=== PATIENT | male | born 1985 | race African-American/Black ===

== ENCOUNTER 2019-02-13 22:29 | Emergency (ER) | payer OTHER, SELFPAY | END 2019-02-13 23:12 | disposition home or self-care (01) | LOC: ERS 22:29 | DX: L03.811 Cellulitis of head [any part, except face] (principal); E11.9 Type 2 diabetes mellitus without complications; I11.0 Hypertensive heart disease with heart failure; F17.210 Nicotine dependence, cigarettes, uncomplicated; Z79.899 Other long term (current) drug therapy; Z79.84 Long term (current) use of oral hypoglycemic drugs | CPT/HCPCS: 99282 ==

== ENCOUNTER 2022-03-27 22:59 | Inpatient (IN) | payer SELFPAY ==
[2022-03-28] MEDS ORDERED: HYDROcodone/Acetaminophen 7.5/325 mg Tablet PO PRN (01:53)
[2022-03-28] MEDS ORDERED: Ondansetron PF 4 MG/2 ML Vial IVP PRN ×2 (01:53→17:58)
[2022-03-28] MEDS ORDERED: hydrALAZINE 20 MG/ML VIAL SLOW IVP PRN ×2 (02:14→17:58)
[2022-03-28 05:08] LABS: Anion Gap 17 mmol/L (10-20); BUN (Urea Nitrogen) 7 mg/dL (8.9-20.6); Calc. Creatinine Clearance 115 mL/min (70-130); Calcium 9.2 mg/dL (7.8-10.44); Carbon Dioxide 20 mmol/L (22-29); Chloride 103 mmol/L (98-107); Estimated GFR 75; Glucose 102 mg/dL (70-105); Potassium 4.1 mmol/L (3.5-5.1); Sodium 136 mmol/L (136-145)
[2022-03-28 05:17] LABS: #Eosinphils 0.2 thou/uL (0.0-0.7); #Lymphocytes 1.6 thou/uL (1.20-3.40); #Monocytes 0.9 thou/uL (0.11-0.59); #Neutrophils 11.9 thou/uL (1.40-6.50); %Basophils 0.2 % (0.0-1.0); %Eosinophils 1.1 % (0.0-10.0); %Lymphocytes 10.9 % (21.0-51.0); %Monocytes 5.8 % (0.0-10.0); Band 2 % (5-11); Eosinophils 1 % (0-10); Hemoglobin 8.5 g/dL (14.0-18.0); Hypochromia SLIGHT = 6-15 cells (100X) (0-5/hpf); Lymphocytes 18 % (21-51); MDiff Complete? YES; Mean Corpuscular HGB CONC 28.6 g/dL (32.0-36.0); Mean Corpuscular Hemoglobin 19.2 pg (27.0-31.0); Mean Corpuscular Volume 66.9 fL (78.0-98.0); Monocytes 8 % (0-10); Neutrophil 71 % (42-75); Nucleated RBC 2 % (0); Platelet Count 368 thou/uL (130-400); Platelet Morphology Comment Appears Adequate; RBC Distribution Width 20.4 % (11.5-14.5); Red Blood Cell (RBC) Count 4.43 mill/uL (4.70-6.10); Target Cells SLIGHT = 2-5 cells (100X) (0-1/hpf); White Blood Cell (WBC) Count 14.5 thou/uL (4.8-10.8)
[2022-03-28] MEDS ORDERED: Lisinopril 20 MG TAB PO SCH (09:00)
[2022-03-28] MEDS ORDERED: Furosemide 20 MG TAB PO SCH (09:00)
[2022-03-28] MEDS: Carvedilol 25 MG TAB PO SCH (09:26)
[2022-03-28] MEDS: Ferrous Sulfate 325 MG TAB PO SCH ×2 (09:26→18:38)
[2022-03-28] MEDS ORDERED: Midazolam HCl 2 mg/2 ml Vial ONE (12:27)
[2022-03-28] MEDS ORDERED: Ketamine 50 MG/ML (10ML VIAL) ONE (12:27)
[2022-03-28] MEDS ORDERED: Albumin 5% 250 ML ONE (12:28)
[2022-03-28] MEDS ORDERED: Famotidine/PF 20 mg/2ml Vial ONE (12:28)
[2022-03-28] MEDS ORDERED: fentaNYL Citrate/PF 100 MCG/2 ML SYRINGE ONE ×2 (12:28→15:09)
[2022-03-28] MEDS ORDERED: SUGAMMADEX SODIUM 200 MG/2 ML VIAL ONE (12:28)
[2022-03-28] MEDS ORDERED: Phenylephrine 10 MG/ML VIAL ONE ×2 (12:29→13:09)
[2022-03-28] MEDS ORDERED: cefOXitin 2 GM VIAL ONE (12:52)
[2022-03-28] MEDS ORDERED: Sodium Chloride 0.9% 100 ML ONE (12:53)
[2022-03-28] MEDS ORDERED: Lidocaine 1% PF 5 ML VIAL ONE ×3 (13:09→19:49)
[2022-03-28] MEDS ORDERED: Dexamethasone 20 MG/5 ML VIAL ONE (13:09)
[2022-03-28] MEDS ORDERED: Rocuronium Bromide 10 MG/ML (10ML VIAL) ONE (13:09)
[2022-03-28] MEDS ORDERED: Bupivacaine 0.25% 10 ML VIAL ONE (13:31)
[2022-03-28] MEDS ORDERED: EPINEPHrine 1 MG/ML AMP ONE (13:31)
[2022-03-28] MEDS ORDERED: Bupivacaine/Epinephrine 0.25% 30 ML VIAL ONE ×2 (13:31→16:45)
[2022-03-28] MEDS ORDERED: Rocuronium Bromide 50 MG/5 ML VIAL ONE (15:09)
[2022-03-28] MEDS ORDERED: Ondansetron HCl/PF 4 MG/2 ML Vial IVP PRN (17:28)
[2022-03-28] MEDS ORDERED: Promethazine HCl 25 MG/ML VIAL IVPB PRN (17:28)
[2022-03-28] MEDS ORDERED: Promethazine HCl 25 MG/ML VIAL IM PRN ×2 (17:28→17:58)
[2022-03-28] MEDS ORDERED: HYDROmorphone 2 MG/ML VIAL SLOW IVP PRN (17:28)
[2022-03-28] MEDS ORDERED: PACU-Morphine 4MG/ML VIAL SLOW IVP PRN (17:28)
[2022-03-28] MEDS ORDERED: Morphine 4 MG/ML VIAL SLOW IVP PRN (17:58)
[2022-03-28] MEDS ORDERED: Morphine 2 MG/ML VIAL SLOW IVP PRN (17:58)
[2022-03-28] MEDS: Ketorolac Tromethamine 30 MG/ML VIAL IVP SCH (19:01)
[2022-03-28] MEDS: D5 1/2 NS w/20 mEq KCL 1,000 ML IV SCH (19:03)
[2022-03-28] MEDS: Famotidine 20 MG TAB PO SCH (20:38)
[2022-03-28] MEDS: Atorvastatin Calcium 20 MG TAB PO SCH (20:38)
[2022-03-28] MEDS ORDERED: Atorvastatin Calcium 20 MG TAB PO SCH (21:00)
[2022-03-28] MEDS: Famotidine/PF 20 mg/2ml Vial SLOW IVP SCH (21:41)
[2022-03-29] MEDS: Ketorolac Tromethamine 30 MG/ML VIAL IVP SCH ×3 (00:16→12:59)
[2022-03-29] MEDS: D5 1/2 NS w/20 mEq KCL 1,000 ML IV SCH (02:58)
[2022-03-29 04:54] LABS: Anion Gap 14 mmol/L (10-20); BUN (Urea Nitrogen) 14 mg/dL (8.9-20.6); Calc. Creatinine Clearance 91 mL/min (70-130); Calcium 8.9 mg/dL (7.8-10.44); Carbon Dioxide 18 mmol/L (22-29); Chloride 105 mmol/L (98-107); Estimated GFR 56; Glucose 278 mg/dL (70-105); Potassium 5.2 mmol/L (3.5-5.1); Sodium 132 mmol/L (136-145)
[2022-03-29 05:28] LABS: Anisocytosis MODERATE=16-30 cells (100X) (0-5/hpf); Band 1 % (5-11); Burr Cells SLIGHT = 2-5 cells (100X) (0-1/hpf); Hemoglobin 10.9 g/dL (14.0-18.0); Hypochromia SLIGHT = 6-15 cells (100X) (0-5/hpf); Lymphocytes 1 % (21-51); MDiff Complete? YES; Mean Corpuscular HGB CONC 29.2 g/dL (32.0-36.0); Mean Corpuscular Hemoglobin 21.1 pg (27.0-31.0); Mean Corpuscular Volume 72.1 fL (78.0-98.0); Mean Platelet Volume 11.4 fL (7.4-10.4); Microcytosis SLIGHT = 6-15 cells (100X) (0-5/hpf); Monocytes 6 % (0-10); Neutrophil 92 % (42-75); Platelet Count 379 thou/uL (130-400); Platelet Morphology Comment Appears Adequate; Polychromasia SLIGHT = 2-3 cells (100X) (0-2/hpf); RBC Distribution Width 22.7 % (11.5-14.5); Red Blood Cell (RBC) Count 5.17 mill/uL (4.70-6.10); Target Cells SLIGHT = 2-5 cells (100X) (0-1/hpf); White Blood Cell (WBC) Count 23.1 thou/uL (4.8-10.8)
[2022-03-29] MEDS ORDERED: Lactated Ringer's 1,000 ML IV SCH (08:15)
[2022-03-29] MEDS: Enoxaparin Sodium 40 MG/0.4 ML SYRINGE SC SCH (09:24)
[2022-03-29] MEDS: Famotidine/PF 20 mg/2ml Vial SLOW IVP SCH (09:26)
[2022-03-29] MEDS: Famotidine 20 MG TAB PO SCH ×2 (09:26→21:25)
[2022-03-29] MEDS: HYDROcodone/Acetaminophen 7.5/325 mg Tablet PO PRN ×2 (09:27→19:50)
[2022-03-29] MEDS: Furosemide 20 MG TAB PO SCH (09:28)
[2022-03-29] MEDS: Carvedilol 25 MG TAB PO SCH (09:28)
[2022-03-29] MEDS: Lisinopril 20 MG TAB PO SCH (09:28)
[2022-03-29] MEDS: Lactated Ringer's 1,000 ML IV SCH (14:51)
[2022-03-29] MEDS: Atorvastatin Calcium 20 MG TAB PO SCH (21:25)
[2022-03-30] MEDS: HYDROcodone/Acetaminophen 7.5/325 mg Tablet PO PRN ×3 (00:01→17:36)
[2022-03-30 00:49] LABS: Bacteria/HPF None Seen HPF (None Seen); Bilirubin Negative (Negative); Blood, Urine 1+ (Negative); Clarity Clear (Clear); Glucose, Urine (Dipstick) Normal (Negative); Ketone, Urine Negative (Negative); Leukocyte 75 Leu/uL (Negative); Nitrite Negative (Negative); Protein, Urine (Dipstick) Negative (Neg-Trace); Specific Gravity, Urine 1.018 (1.002-1.036); Squamous Epithelial None Seen HPF (0-3); Urine Culture Reflex Yes Yes; Urobilinogen Normal mg/dL (Less than 2)
[2022-03-30 04:50] LABS: Anion Gap 14 mmol/L (10-20); BUN (Urea Nitrogen) 19 mg/dL (8.9-20.6); Calc. Creatinine Clearance 96 mL/min (70-130); Calcium 8.9 mg/dL (7.8-10.44); Carbon Dioxide 19 mmol/L (22-29); Chloride 106 mmol/L (98-107); Estimated GFR 60; Glucose 98 mg/dL (70-105); Potassium 4.4 mmol/L (3.5-5.1); Sodium 135 mmol/L (136-145)
[2022-03-30 05:03] LABS: Band 4 % (5-11); Hemoglobin 9.4 g/dL (14.0-18.0); Hypochromia SLIGHT = 6-15 cells (100X) (0-5/hpf); Lymphocytes 8 % (21-51); MDiff Complete? YES; Mean Corpuscular HGB CONC 28.7 g/dL (32.0-36.0); Mean Corpuscular Hemoglobin 20.8 pg (27.0-31.0); Mean Corpuscular Volume 72.6 fL (78.0-98.0); Mean Platelet Volume 11.1 fL (7.4-10.4); Microcytosis SLIGHT = 6-15 cells (100X) (0-5/hpf); Monocytes 7 % (0-10); Neutrophil 81 % (42-75); Platelet Count 387 thou/uL (130-400); Platelet Morphology Comment Appears Adequate; Polychromasia SLIGHT = 2-3 cells (100X) (0-2/hpf); RBC Distribution Width 23.1 % (11.5-14.5); Red Blood Cell (RBC) Count 4.49 mill/uL (4.70-6.10); White Blood Cell (WBC) Count 23.7 thou/uL (4.8-10.8)
[2022-03-30] MEDS: Lactated Ringer's 1,000 ML IV SCH ×2 (05:56→20:45)
[2022-03-30] MEDS: Furosemide 20 MG TAB PO SCH (08:47)
[2022-03-30] MEDS: Lisinopril 20 MG TAB PO SCH (08:47)
[2022-03-30] MEDS: Carvedilol 25 MG TAB PO SCH (08:47)
[2022-03-30] MEDS: Famotidine 20 MG TAB PO SCH ×2 (08:47→20:45)
[2022-03-30] MEDS: Enoxaparin Sodium 40 MG/0.4 ML SYRINGE SC SCH (08:47)
[2022-03-30] MEDS: Atorvastatin Calcium 20 MG TAB PO SCH (20:45)
[2022-03-31] MEDS: HYDROcodone/Acetaminophen 7.5/325 mg Tablet PO PRN ×3 (04:03→20:26)
[2022-03-31] MEDS: Lactated Ringer's 1,000 ML IV SCH ×2 (04:04→20:27)
[2022-03-31 04:21] LABS: #Eosinphils 0.1 thou/uL (0.0-0.7); #Lymphocytes 1.4 thou/uL (1.20-3.40); #Monocytes 1.2 thou/uL (0.11-0.59); #Neutrophils 8.7 thou/uL (1.40-6.50); %Basophils 0.1 % (0.0-1.0); %Eosinophils 0.7 % (0.0-10.0); %Lymphocytes 11.9 % (21.0-51.0); %Monocytes 10.4 % (0.0-10.0); %Neutrophils 76.8 % (42.0-75.0); Mean Corpuscular HGB CONC 30.1 g/dL (32.0-36.0); Mean Corpuscular Hemoglobin 21.4 pg (27.0-31.0); Mean Platelet Volume 11.8 fL (7.4-10.4); Platelet Count 346 thou/uL (130-400); RBC Distribution Width 23.9 % (11.5-14.5); Red Blood Cell (RBC) Count 4.19 mill/uL (4.70-6.10); White Blood Cell (WBC) Count 11.4 thou/uL (4.8-10.8)
[2022-03-31 04:40] LABS: Anion Gap 15 mmol/L (10-20); BUN (Urea Nitrogen) 17 mg/dL (8.9-20.6); Calc. Creatinine Clearance 114 mL/min (70-130); Calcium 8.7 mg/dL (7.8-10.44); Carbon Dioxide 21 mmol/L (22-29); Chloride 101 mmol/L (98-107); Estimated GFR 70; Glucose 104 mg/dL (70-105); Potassium 3.8 mmol/L (3.5-5.1); Sodium 133 mmol/L (136-145)
[2022-03-31] MEDS: Carvedilol 25 MG TAB PO SCH (09:25)
[2022-03-31] MEDS: Lisinopril 20 MG TAB PO SCH (09:25)
[2022-03-31] MEDS: Famotidine 20 MG TAB PO SCH ×2 (09:25→20:28)
[2022-03-31] MEDS: Furosemide 20 MG TAB PO SCH (09:25)
[2022-03-31] MEDS: Enoxaparin Sodium 40 MG/0.4 ML SYRINGE SC SCH (09:26)
[2022-03-31] MEDS: Ferrous Sulfate 325 MG TAB PO SCH (16:30)
[2022-03-31] MEDS: Atorvastatin Calcium 20 MG TAB PO SCH (20:26)
[2022-04-01 04:59] LABS: Anion Gap 15 mmol/L (10-20); BUN (Urea Nitrogen) 15 mg/dL (8.9-20.6); Calc. Creatinine Clearance 116 mL/min (70-130); Calcium 8.7 mg/dL (7.8-10.44); Carbon Dioxide 21 mmol/L (22-29); Chloride 99 mmol/L (98-107); Estimated GFR 73; Glucose 128 mg/dL (70-105); Potassium 3.9 mmol/L (3.5-5.1); Sodium 131 mmol/L (136-145)
[2022-04-01 06:21] LABS: Anisocytosis MODERATE=16-30 cells (100X) (0-5/hpf); Band 6 % (5-11); Eosinophils 1 % (0-10); Hemoglobin 8.6 g/dL (14.0-18.0); Hypochromia SLIGHT = 6-15 cells (100X) (0-5/hpf); Lymphocytes 8 % (21-51); MDiff Complete? YES; Mean Corpuscular HGB CONC 28.9 g/dL (32.0-36.0); Mean Corpuscular Hemoglobin 21.1 pg (27.0-31.0); Mean Platelet Volume 10.6 fL (7.4-10.4); Monocytes 4 % (0-10); Neutrophil 81 % (42-75); Platelet Count 334 thou/uL (130-400); RBC Distribution Width 23.5 % (11.5-14.5); Red Blood Cell (RBC) Count 4.09 mill/uL (4.70-6.10); Target Cells SLIGHT = 2-5 cells (100X) (0-1/hpf); White Blood Cell (WBC) Count 26.7 thou/uL (4.8-10.8)
[2022-04-01] MEDS: HYDROcodone/Acetaminophen 7.5/325 mg Tablet PO PRN ×3 (06:24→22:04)
[2022-04-01] MEDS: Ferrous Sulfate 325 MG TAB PO SCH (08:54)
[2022-04-01] MEDS: Famotidine 20 MG TAB PO SCH ×2 (08:54→21:57)
[2022-04-01] MEDS: Furosemide 20 MG TAB PO SCH (08:54)
[2022-04-01] MEDS: Enoxaparin Sodium 40 MG/0.4 ML SYRINGE SC SCH (08:54)
[2022-04-01] MEDS: Lisinopril 20 MG TAB PO SCH (08:54)
[2022-04-01] MEDS: Lactated Ringer's 1,000 ML IV SCH ×3 (08:55→21:57)
[2022-04-01] MEDS: Carvedilol 25 MG TAB PO SCH (08:56)
[2022-04-01] MEDS ORDERED: MD-Gastroview 120 ML BOT ONE (14:35)
[2022-04-01] MEDS ORDERED: Piperacillin/Tazobactam 3.375 GM VIAL ONE ×2 (15:24→20:28)
[2022-04-01] MEDS ORDERED: Sodium Chloride 0.9% 100 ML ONE ×2 (15:24→20:28)
[2022-04-01] MEDS ORDERED: Bupivacaine/Epinephrine 0.25% 30 ML VIAL ONE (17:23)
[2022-04-01] MEDS ORDERED: fentaNYL Citrate/PF 100 MCG/2 ML SYRINGE ONE ×2 (17:32→20:34)
[2022-04-01] MEDS ORDERED: ePHEDrine 50 MG/ML VIAL ONE (17:58)
[2022-04-01] MEDS ORDERED: Phenylephrine 10 MG/ML VIAL ONE (17:58)
[2022-04-01] MEDS ORDERED: Rocuronium Bromide 10 MG/ML (10ML VIAL) ONE (17:58)
[2022-04-01] MEDS ORDERED: Dexamethasone 20 MG/5 ML VIAL ONE (17:58)
[2022-04-01] MEDS ORDERED: Succinylcholine 200 MG/10 ml SYRINGE FS ONE (17:58)
[2022-04-01] MEDS ORDERED: Ondansetron PF 4 MG/2 ML Vial ONE (17:58)
[2022-04-01 18:32] LABS: Iron 9 ug/dL (65-175); Iron Binding Capacity, Total 239 mcg/dL (261-462)
[2022-04-01] MEDS ORDERED: EPINEPHrine 1 MG/ML AMP ONE (19:01)
[2022-04-01] MEDS ORDERED: Bupivacaine PF 0.5% 30 ML VIAL ONE (19:01)
[2022-04-01] MEDS ORDERED: Ondansetron HCl/PF 4 MG/2 ML Vial IVP PRN (20:11)
[2022-04-01] MEDS ORDERED: Promethazine HCl 25 MG/ML VIAL IVPB PRN (20:11)
[2022-04-01] MEDS ORDERED: Promethazine HCl 25 MG/ML VIAL IM PRN (20:11)
[2022-04-01] MEDS: Piperacillin/Tazobactam 3.375 GM in Sodium Chloride 0.9% 100 ML IVPB SCH (20:30)
[2022-04-01] MEDS: Atorvastatin Calcium 20 MG TAB PO SCH (21:57)
[2022-04-02] MEDS: Morphine 2 MG/ML VIAL SLOW IVP PRN (01:48)
[2022-04-02] MEDS: Piperacillin/Tazobactam 3.375 GM in Sodium Chloride 0.9% 100 ML IVPB SCH ×4 (02:32→23:35)
[2022-04-02 04:46] LABS: Anion Gap 15 mmol/L (10-20); BUN (Urea Nitrogen) 25 mg/dL (8.9-20.6); Calc. Creatinine Clearance 64 mL/min (70-130); Calcium 8.5 mg/dL (7.8-10.44); Carbon Dioxide 23 mmol/L (22-29); Chloride 100 mmol/L (98-107); Estimated GFR 35; Glucose 197 mg/dL (70-105); Potassium 4.2 mmol/L (3.5-5.1); Sodium 134 mmol/L (136-145)
[2022-04-02 05:35] LABS: Anisocytosis MODERATE=16-30 cells (100X) (0-5/hpf); Band 9 % (5-11); Hemoglobin 9.1 g/dL (14.0-18.0); Hypochromia SLIGHT = 6-15 cells (100X) (0-5/hpf); Lymphocytes 1 % (21-51); MDiff Complete? YES; Mean Corpuscular HGB CONC 29.9 g/dL (32.0-36.0); Mean Corpuscular Volume 73.6 fL (78.0-98.0); Mean Platelet Volume 10.2 fL (7.4-10.4); Monocytes 6 % (0-10); Neutrophil 84 % (42-75); Platelet Count 371 thou/uL (130-400); RBC Distribution Width 23.1 % (11.5-14.5); Red Blood Cell (RBC) Count 4.12 mill/uL (4.70-6.10); White Blood Cell (WBC) Count 32.3 thou/uL (4.8-10.8)
[2022-04-02] MEDS: HYDROcodone/Acetaminophen 7.5/325 mg Tablet PO PRN ×2 (05:42→23:35)
[2022-04-02] MEDS: Lactated Ringer's 1,000 ML IV SCH ×5 (05:55→20:40)
[2022-04-02] MEDS ORDERED: Sodium Chloride 0.9% 1,000 ML IV SCH ×2 (08:15→17:00)
[2022-04-02] MEDS: Enoxaparin Sodium 40 MG/0.4 ML SYRINGE SC SCH (08:50)
[2022-04-02] MEDS: Carvedilol 25 MG TAB PO SCH (08:50)
[2022-04-02] MEDS: Famotidine 20 MG TAB PO SCH (08:50)
[2022-04-02] MEDS: Lisinopril 20 MG TAB PO SCH (08:50)
[2022-04-02] MEDS: Morphine 4 MG/ML VIAL SLOW IVP PRN (08:51)
[2022-04-02] MEDS ORDERED: Iron, Sodium Ferric Gluconate 250 MG in Sodium Chloride 0.9% 250 ML 250 ML IVPB SCH (13:00)
[2022-04-02 14:22] LABS: Anion Gap 17 mmol/L (10-20); BUN (Urea Nitrogen) 35 mg/dL (8.9-20.6); Calc. Creatinine Clearance 51 mL/min (70-130); Calcium 8.3 mg/dL (7.8-10.44); Carbon Dioxide 21 mmol/L (22-29); Chloride 102 mmol/L (98-107); Estimated GFR 26; Glucose 197 mg/dL (70-105); Potassium 4.5 mmol/L (3.5-5.1); Sodium 135 mmol/L (136-145)
[2022-04-02] MEDS: Ferrous Sulfate 325 MG TAB PO SCH (14:38)
[2022-04-02] MEDS: Atorvastatin Calcium 20 MG TAB PO SCH (21:51)
[2022-04-03] MEDS: Lactated Ringer's 1,000 ML IV SCH ×2 (02:25→05:42)
[2022-04-03 04:40] LABS: Anion Gap 16 mmol/L (10-20); BUN (Urea Nitrogen) 43 mg/dL (8.9-20.6); Calc. Creatinine Clearance 41 mL/min (70-130); Calcium 8.6 mg/dL (7.8-10.44); Carbon Dioxide 20 mmol/L (22-29); Chloride 101 mmol/L (98-107); Estimated GFR 20; Glucose 139 mg/dL (70-105); Potassium 4.2 mmol/L (3.5-5.1); Sodium 133 mmol/L (136-145)
[2022-04-03 05:00] LABS: Anisocytosis MODERATE=16-30 cells (100X) (0-5/hpf); Band 3 % (5-11); Hemoglobin 7.2 g/dL (14.0-18.0); Hypochromia SLIGHT = 6-15 cells (100X) (0-5/hpf); Lymphocytes 2 % (21-51); MDiff Complete? YES; Mean Corpuscular HGB CONC 29.2 g/dL (32.0-36.0); Mean Corpuscular Hemoglobin 21.5 pg (27.0-31.0); Mean Corpuscular Volume 73.7 fL (78.0-98.0); Mean Platelet Volume 10.5 fL (7.4-10.4); Microcytosis SLIGHT = 6-15 cells (100X) (0-5/hpf); Monocytes 6 % (0-10); Neutrophil 89 % (42-75); Platelet Count 367 thou/uL (130-400); RBC Distribution Width 23.1 % (11.5-14.5); Red Blood Cell (RBC) Count 3.34 mill/uL (4.70-6.10); Target Cells SLIGHT = 2-5 cells (100X) (0-1/hpf); White Blood Cell (WBC) Count 21.1 thou/uL (4.8-10.8)
[2022-04-03] MEDS: Enoxaparin Sodium 40 MG/0.4 ML SYRINGE SC SCH (09:00)
[2022-04-03] MEDS: Famotidine 20 MG TAB PO SCH (09:00)
[2022-04-03] MEDS: Piperacillin/Tazobactam 3.375 GM in Sodium Chloride 0.9% 100 ML IVPB SCH ×3 (09:01→22:40)
[2022-04-03] MEDS: Carvedilol 25 MG TAB PO SCH (09:01)
[2022-04-03] MEDS: HYDROcodone/Acetaminophen 7.5/325 mg Tablet PO PRN ×2 (09:48→23:59)
[2022-04-03 10:34] LABS: ALT (SGPT) 19 U/L (8-55); AST (SGOT) 35 U/L (5-34); Albumin 2.4 g/dL (3.5-5.0); Alkaline Phosphatase 65 U/L (40-110); Bilirubin, Direct 0.6 mg/dL (0.1-0.3); Bilirubin, Total 0.8 mg/dL (0.2-1.2); Protein, Total 6.3 g/dL (6.0-8.3)
[2022-04-03 11:58] VITALS: BMI 39.9
[2022-04-03] MEDS: Albumin 25% 25 GM/100 ML BOT IVPB SCH ×3 (12:17→22:40)
[2022-04-03] MEDS ORDERED: Iron, Sodium Ferric Gluconate 250 MG in Sodium Chloride 0.9% 250 ML 250 ML IVPB SCH (13:00)
[2022-04-03] MEDS: Atorvastatin Calcium 20 MG TAB PO SCH (20:29)
[2022-04-03] MEDS: Sodium Bicarbonate 150 MEQ in Dextrose 5% in Water 1,000 ML IV SCH (22:40)
[2022-04-03 22:44] LABS: Bilirubin Negative (Negative); Blood, Urine 3+ (Negative); Clarity Turbid (Clear); Glucose, Urine (Dipstick) Normal (Negative); Ketone, Urine Negative (Negative); Leukocyte Negative Leu/uL (Negative); Nitrite Negative (Negative); Protein, Urine (Dipstick) 30 mg/dL (Neg-Trace); Specific Gravity, Urine 1.016 (1.002-1.036); Squamous Epithelial None Seen HPF (0-3); Urobilinogen Normal mg/dL (Less than 2); pH, Urine 5.5 (5.0-9.0)
[2022-04-03 22:58] LABS: Bacteria/HPF 3+ HPF (None Seen); WBC/HPF 0-3 HPF (0-3)
[2022-04-03 22:59] LABS: Creatinine, Urine 93.61 mg/dL (63-166); Urine Culture Reflex Yes Yes
[2022-04-04] MEDS: Albumin 25% 25 GM/100 ML BOT IVPB SCH (04:26)
[2022-04-04 06:30] LABS: Anion Gap 17 mmol/L (10-20); BUN (Urea Nitrogen) 43 mg/dL (8.9-20.6); Calc. Creatinine Clearance 42 mL/min (70-130); Calcium 8.6 mg/dL (7.8-10.44); Carbon Dioxide 24 mmol/L (22-29); Chloride 97 mmol/L (98-107); Estimated GFR 21; Glucose 140 mg/dL (70-105); Potassium 3.7 mmol/L (3.5-5.1); Sodium 134 mmol/L (136-145)
[2022-04-04 07:13] LABS: #Eosinphils 0.1 thou/uL (0.0-0.7); #Lymphocytes 0.9 thou/uL (1.20-3.40); #Monocytes 1.4 thou/uL (0.11-0.59); #Neutrophils 12.1 thou/uL (1.40-6.50); %Eosinophils 0.6 % (0.0-10.0); %Lymphocytes 6.1 % (21.0-51.0); %Monocytes 9.6 % (0.0-10.0); %Neutrophils 83.7 % (42.0-75.0); Anisocytosis MODERATE=16-30 cells (100X) (0-5/hpf); Hemoglobin 7.8 g/dL (14.0-18.0); Hypochromia SLIGHT = 6-15 cells (100X) (0-5/hpf); MDiff Complete? YES; Mean Corpuscular HGB CONC 30.1 g/dL (32.0-36.0); Mean Corpuscular Hemoglobin 22.8 pg (27.0-31.0); Mean Corpuscular Volume 75.7 fL (78.0-98.0); Mean Platelet Volume 10.3 fL (7.4-10.4); Microcytosis SLIGHT = 6-15 cells (100X) (0-5/hpf); Ovalocytes SLIGHT = 2-5 cells (100X) (0-1/hpf); Platelet Count 371 thou/uL (130-400); Platelet Morphology Comment Appears Adequate; Polychromasia SLIGHT = 2-3 cells (100X) (0-2/hpf); RBC Distribution Width 24.6 % (11.5-14.5); Red Blood Cell (RBC) Count 3.41 mill/uL (4.70-6.10); Schistocytes SLIGHT = 2-5 cells (100X) (0-1/hpf); Target Cells MODERATE= 6-15 cells (100X) (0-1/hpf); Tear Drops SLIGHT = 2-5 cells (100X) (0-1/hpf); White Blood Cell (WBC) Count 14.5 thou/uL (4.8-10.8)
[2022-04-04] MEDS: Piperacillin/Tazobactam 3.375 GM in Sodium Chloride 0.9% 100 ML IVPB SCH ×3 (07:55→23:04)
[2022-04-04] MEDS: Famotidine 20 MG TAB PO SCH (07:55)
[2022-04-04] MEDS: HYDROcodone/Acetaminophen 7.5/325 mg Tablet PO PRN ×2 (07:57→20:04)
[2022-04-04] MEDS ORDERED: Enoxaparin Sodium 30 MG/0.3 ML SYRINGE SC SCH (09:00)
[2022-04-04 11:30] LABS: Hemoglobin 8.1 g/dL (14.0-18.0); Platelet Count 360 thou/uL (130-400)
[2022-04-04] MEDS: Sodium Bicarbonate 150 MEQ in Dextrose 5% in Water 1,000 ML IV SCH (16:25)
[2022-04-04 18:36] LABS: Platelet Count 392 thou/uL (130-400)
[2022-04-04] MEDS: Atorvastatin Calcium 20 MG TAB PO SCH (20:04)
[2022-04-05 05:56] LABS: Hemoglobin 8.8 g/dL (14.0-18.0); Mean Corpuscular HGB CONC 29.8 g/dL (32.0-36.0); Mean Corpuscular Hemoglobin 22.4 pg (27.0-31.0); Mean Corpuscular Volume 75.1 fL (78.0-98.0); Mean Platelet Volume 10.1 fL (7.4-10.4); Platelet Count 416 thou/uL (130-400); Red Blood Cell (RBC) Count 3.91 mill/uL (4.70-6.10); White Blood Cell (WBC) Count 13.9 thou/uL (4.8-10.8)
[2022-04-05 06:01] LABS: ALT (SGPT) 17 U/L (8-55); AST (SGOT) 22 U/L (5-34); Albumin 2.8 g/dL (3.5-5.0); Alkaline Phosphatase 75 U/L (40-110); Anion Gap 15 mmol/L (10-20); BUN (Urea Nitrogen) 31 mg/dL (8.9-20.6); Bilirubin, Total 0.6 mg/dL (0.2-1.2); Calc. Creatinine Clearance 62 mL/min (70-130); Calcium 8.4 mg/dL (7.8-10.44); Carbon Dioxide 26 mmol/L (22-29); Chloride 98 mmol/L (98-107); Estimated GFR 33; Globulin 3.6 g/dL (2.4-3.5); Glucose 132 mg/dL (70-105); Potassium 3.8 mmol/L (3.5-5.1); Protein, Total 6.4 g/dL (6.0-8.3); Sodium 135 mmol/L (136-145)
[2022-04-05 06:08] LABS: Anisocytosis MODERATE=16-30 cells (100X) (0-5/hpf); Band 1 % (5-11); Hypochromia SLIGHT = 6-15 cells (100X) (0-5/hpf); Lymphocytes 5 % (21-51); MDiff Complete? YES; Microcytosis SLIGHT = 6-15 cells (100X) (0-5/hpf); Monocytes 9 % (0-10); Neutrophil 85 % (42-75); Target Cells SLIGHT = 2-5 cells (100X) (0-1/hpf)
[2022-04-05] MEDS: Piperacillin/Tazobactam 3.375 GM in Sodium Chloride 0.9% 100 ML IVPB SCH ×3 (07:49→23:26)
[2022-04-05] MEDS: Famotidine 20 MG TAB PO SCH (07:49)
[2022-04-05] MEDS: Sodium Bicarbonate 150 MEQ in Dextrose 5% in Water 1,000 ML IV SCH (08:02)
[2022-04-05] MEDS ORDERED: Enoxaparin Sodium 40 MG/0.4 ML SYRINGE SC SCH (09:00)
[2022-04-05] MEDS: HYDROcodone/Acetaminophen 7.5/325 mg Tablet PO PRN ×2 (11:27→21:08)
[2022-04-05] MEDS ORDERED: Carvedilol 25 MG TAB PO SCH (12:15)
[2022-04-05] MEDS ORDERED: Iron, Sodium Ferric Gluconate 250 MG in Sodium Chloride 0.9% 250 ML 250 ML IVPB SCH (12:15)
[2022-04-05] MEDS: Lactated Ringer's 1,000 ML IV SCH ×2 (13:04→21:07)
[2022-04-05] MEDS: Carvedilol 25 MG TAB PO SCH (16:01)
[2022-04-05] MEDS: Atorvastatin Calcium 20 MG TAB PO SCH (21:07)
[2022-04-06 01:02] LABS: SARS-CoV-2 NAA Rapid Test Not Detected (NotDetected)
[2022-04-06 05:17] LABS: Anion Gap 14 mmol/L (10-20); BUN (Urea Nitrogen) 20 mg/dL (8.9-20.6); Calc. Creatinine Clearance 94 mL/min (70-130); Calcium 8.3 mg/dL (7.8-10.44); Carbon Dioxide 27 mmol/L (22-29); Chloride 98 mmol/L (98-107); Estimated GFR 55; Glucose 103 mg/dL (70-105); Potassium 4.1 mmol/L (3.5-5.1); Sodium 135 mmol/L (136-145)
[2022-04-06 05:45] LABS: #Eosinphils 0.1 thou/uL (0.0-0.7); #Lymphocytes 1.2 thou/uL (1.20-3.40); #Monocytes 1.4 thou/uL (0.11-0.59); %Basophils 0.1 % (0.0-1.0); %Eosinophils 0.7 % (0.0-10.0); %Lymphocytes 7.7 % (21.0-51.0); %Monocytes 9.2 % (0.0-10.0); %Neutrophils 82.4 % (42.0-75.0); Hemoglobin 9.1 g/dL (14.0-18.0); Mean Corpuscular HGB CONC 30.8 g/dL (32.0-36.0); Mean Corpuscular Hemoglobin 23.1 pg (27.0-31.0); Mean Corpuscular Volume 74.8 fL (78.0-98.0); Mean Platelet Volume 9.3 fL (7.4-10.4); Platelet Count 395 thou/uL (130-400); RBC Distribution Width 25.2 % (11.5-14.5); Red Blood Cell (RBC) Count 3.97 mill/uL (4.70-6.10); White Blood Cell (WBC) Count 15.7 thou/uL (4.8-10.8)
[2022-04-06] MEDS: Famotidine 20 MG TAB PO SCH ×2 (08:07→20:36)
[2022-04-06] MEDS: Carvedilol 25 MG TAB PO SCH ×2 (08:08→16:10)
[2022-04-06] MEDS: Piperacillin/Tazobactam 3.375 GM in Sodium Chloride 0.9% 100 ML IVPB SCH ×2 (08:08→16:10)
[2022-04-06] MEDS: Amlodipine 10 MG TAB PO SCH (08:08)
[2022-04-06] MEDS: Lactated Ringer's 1,000 ML IV SCH ×2 (08:08→13:31)
[2022-04-06] MEDS ORDERED: Bupivacaine/Epinephrine 0.25% 30 ML VIAL ONE (10:33)
[2022-04-06] MEDS ORDERED: Midazolam HCl 2 mg/2 ml Vial ONE (10:43)
[2022-04-06] MEDS ORDERED: PROPOFOL 40 ML ONE (10:43)
[2022-04-06] MEDS ORDERED: Famotidine/PF 20 mg/2ml Vial ONE (10:43)
[2022-04-06] MEDS ORDERED: fentaNYL Citrate/PF 100 MCG/2 ML SYRINGE ONE (10:43)
[2022-04-06] MEDS ORDERED: Propofol 500 MG/50 ML VIAL ONE (10:43)
[2022-04-06] MEDS ORDERED: PROPOFOL 200 MG/20 ML VIAL ONE (10:57)
[2022-04-06] MEDS ORDERED: Promethazine HCl 25 MG/ML VIAL IM PRN (11:24)
[2022-04-06] MEDS ORDERED: Promethazine HCl 25 MG/ML VIAL IVPB PRN (11:24)
[2022-04-06] MEDS ORDERED: Ondansetron HCl/PF 4 MG/2 ML Vial IVP PRN (11:24)
[2022-04-06] MEDS: HYDROcodone/Acetaminophen 7.5/325 mg Tablet PO PRN (14:20)
[2022-04-06] MEDS: Morphine 2 MG/ML VIAL SLOW IVP PRN ×2 (17:31→20:36)
[2022-04-06] MEDS: Atorvastatin Calcium 20 MG TAB PO SCH (20:35)
[2022-04-07] MEDS: Piperacillin/Tazobactam 3.375 GM in Sodium Chloride 0.9% 100 ML IVPB SCH ×4 (00:03→23:38)
[2022-04-07] MEDS: Lactated Ringer's 1,000 ML IV SCH (05:44)
[2022-04-07 08:07] LABS: Anion Gap 15 mmol/L (10-20); BUN (Urea Nitrogen) 15 mg/dL (8.9-20.6); Calc. Creatinine Clearance 120 mL/min (70-130); Calcium 8.3 mg/dL (7.8-10.44); Carbon Dioxide 25 mmol/L (22-29); Chloride 98 mmol/L (98-107); Estimated GFR 73; Glucose 73 mg/dL (70-105); Potassium 4.1 mmol/L (3.5-5.1); Sodium 134 mmol/L (136-145)
[2022-04-07 08:08] LABS: #Eosinphils 0.1 thou/uL (0.0-0.7); #Monocytes 1.6 thou/uL (0.11-0.59); #Neutrophils 9.9 thou/uL (1.40-6.50); %Basophils 0.3 % (0.0-1.0); %Monocytes 12.6 % (0.0-10.0); %Neutrophils 78.1 % (42.0-75.0); Hemoglobin 9.2 g/dL (14.0-18.0); Hypochromia MODERATE=16-30 cells (100X) (0-5/hpf); MDiff Complete? YES; Mean Corpuscular HGB CONC 29.4 g/dL (32.0-36.0); Mean Corpuscular Hemoglobin 22.5 pg (27.0-31.0); Mean Corpuscular Volume 76.6 fL (78.0-98.0); Mean Platelet Volume 9.7 fL (7.4-10.4); Microcytosis SLIGHT = 6-15 cells (100X) (0-5/hpf); Platelet Count 385 thou/uL (130-400); Polychromasia SLIGHT = 2-3 cells (100X) (0-2/hpf); RBC Distribution Width 25.3 % (11.5-14.5); Red Blood Cell (RBC) Count 4.09 mill/uL (4.70-6.10); Target Cells MODERATE= 6-15 cells (100X) (0-1/hpf); White Blood Cell (WBC) Count 12.7 thou/uL (4.8-10.8)
[2022-04-07] MEDS: Amlodipine 10 MG TAB PO SCH (08:55)
[2022-04-07] MEDS: Carvedilol 25 MG TAB PO SCH ×2 (08:55→17:16)
[2022-04-07] MEDS: Famotidine 20 MG TAB PO SCH ×2 (08:56→21:54)
[2022-04-07] MEDS: Morphine 4 MG/ML VIAL SLOW IVP PRN (11:52)
[2022-04-07] MEDS: HYDROcodone/Acetaminophen 7.5/325 mg Tablet PO PRN (19:10)
[2022-04-07] MEDS: Atorvastatin Calcium 20 MG TAB PO SCH (21:54)
[2022-04-08 06:15] LABS: #Eosinphils 0.1 thou/uL (0.0-0.7); #Lymphocytes 1.2 thou/uL (1.20-3.40); #Monocytes 1.6 thou/uL (0.11-0.59); #Neutrophils 9.8 thou/uL (1.40-6.50); %Basophils 0.1 % (0.0-1.0); %Eosinophils 0.6 % (0.0-10.0); %Lymphocytes 9.5 % (21.0-51.0); %Monocytes 12.3 % (0.0-10.0); %Neutrophils 77.5 % (42.0-75.0); Hemoglobin 8.5 g/dL (14.0-18.0); Mean Corpuscular HGB CONC 30.4 g/dL (32.0-36.0); Mean Corpuscular Hemoglobin 22.9 pg (27.0-31.0); Mean Corpuscular Volume 75.4 fL (78.0-98.0); Mean Platelet Volume 10.3 fL (7.4-10.4); Platelet Count 399 thou/uL (130-400); RBC Distribution Width 25.3 % (11.5-14.5); Red Blood Cell (RBC) Count 3.72 mill/uL (4.70-6.10); White Blood Cell (WBC) Count 12.6 thou/uL (4.8-10.8)
[2022-04-08 06:24] LABS: Anion Gap 15 mmol/L (10-20); BUN (Urea Nitrogen) 14 mg/dL (8.9-20.6); Calc. Creatinine Clearance 119 mL/min (70-130); Calcium 8.4 mg/dL (7.8-10.44); Carbon Dioxide 27 mmol/L (22-29); Chloride 96 mmol/L (98-107); Estimated GFR 72; Glucose 85 mg/dL (70-105); Sodium 134 mmol/L (136-145)
[2022-04-08] MEDS: Famotidine 20 MG TAB PO SCH ×2 (08:52→19:58)
[2022-04-08] MEDS: Amlodipine 10 MG TAB PO SCH (08:52)
[2022-04-08] MEDS: Piperacillin/Tazobactam 3.375 GM in Sodium Chloride 0.9% 100 ML IVPB SCH ×3 (08:52→23:28)
[2022-04-08] MEDS: Carvedilol 25 MG TAB PO SCH ×2 (08:52→16:40)
[2022-04-08] MEDS ORDERED: Furosemide 40 MG/4 ML VIAL SLOW IVP SCH (09:00)
[2022-04-08] MEDS: Morphine 2 MG/ML VIAL SLOW IVP PRN (12:24)
[2022-04-08] MEDS ORDERED: Morphine 4 MG/ML VIAL SLOW IVP PRN (14:41)
[2022-04-08] MEDS ORDERED: Morphine 2 MG/ML VIAL SLOW IVP PRN (14:41)
[2022-04-08] MEDS: Atorvastatin Calcium 20 MG TAB PO SCH (19:58)
[2022-04-09 05:29] LABS: #Eosinphils 0.1 thou/uL (0.0-0.7); #Lymphocytes 1.1 thou/uL (1.20-3.40); #Monocytes 1.2 thou/uL (0.11-0.59); #Neutrophils 10.8 thou/uL (1.40-6.50); %Basophils 0.1 % (0.0-1.0); %Eosinophils 0.8 % (0.0-10.0); %Lymphocytes 8.1 % (21.0-51.0); %Monocytes 8.9 % (0.0-10.0); %Neutrophils 82.1 % (42.0-75.0); Hemoglobin 8.8 g/dL (14.0-18.0); Mean Corpuscular HGB CONC 29.6 g/dL (32.0-36.0); Mean Corpuscular Hemoglobin 22.2 pg (27.0-31.0); Mean Platelet Volume 9.8 fL (7.4-10.4); Platelet Count 416 thou/uL (130-400); RBC Distribution Width 25.3 % (11.5-14.5); Red Blood Cell (RBC) Count 3.95 mill/uL (4.70-6.10); White Blood Cell (WBC) Count 13.1 thou/uL (4.8-10.8)
[2022-04-09 05:43] LABS: Albumin 2.8 g/dL (3.5-5.0); Anion Gap 19 mmol/L (10-20); BUN (Urea Nitrogen) 12 mg/dL (8.9-20.6); Calc. Creatinine Clearance 121 mL/min (70-130); Calcium 8.2 mg/dL (7.8-10.44); Carbon Dioxide 23 mmol/L (22-29); Chloride 97 mmol/L (98-107); Estimated GFR 73; Glucose 94 mg/dL (70-105); Magnesium 1.4 mg/dL (1.6-2.6); Phosphorus 2.6 mg/dL (2.3-4.7); Potassium 4.1 mmol/L (3.5-5.1); Sodium 135 mmol/L (136-145)
[2022-04-09] MEDS ORDERED: Magnesium Sulfate In Water 4 GM in Premix Bag 1 BAG IVPB SCH (06:45)
[2022-04-09] MEDS: Piperacillin/Tazobactam 3.375 GM in Sodium Chloride 0.9% 100 ML IVPB SCH ×2 (08:28→16:06)
[2022-04-09] MEDS: Carvedilol 25 MG TAB PO SCH ×2 (08:28→16:06)
[2022-04-09] MEDS: Famotidine 20 MG TAB PO SCH ×2 (08:28→20:08)
[2022-04-09] MEDS: Amlodipine 10 MG TAB PO SCH (08:28)
[2022-04-09] MEDS: Atorvastatin Calcium 20 MG TAB PO SCH (20:08)
[2022-04-10] MEDS: Piperacillin/Tazobactam 3.375 GM in Sodium Chloride 0.9% 100 ML IVPB SCH ×3 (00:17→17:13)
[2022-04-10 06:00] LABS: Anion Gap 15 mmol/L (10-20); BUN (Urea Nitrogen) 9 mg/dL (8.9-20.6); Calc. Creatinine Clearance 132 mL/min (70-130); Calcium 8.2 mg/dL (7.8-10.44); Carbon Dioxide 21 mmol/L (22-29); Chloride 102 mmol/L (98-107); Estimated GFR 82; Glucose 98 mg/dL (70-105); Potassium 3.8 mmol/L (3.5-5.1); Sodium 134 mmol/L (136-145)
[2022-04-10 06:07] LABS: #Eosinphils 0.1 thou/uL (0.0-0.7); #Lymphocytes 1.4 thou/uL (1.20-3.40); #Monocytes 1.3 thou/uL (0.11-0.59); #Neutrophils 11.3 thou/uL (1.40-6.50); %Basophils 0.1 % (0.0-1.0); %Eosinophils 0.8 % (0.0-10.0); %Lymphocytes 9.7 % (21.0-51.0); %Monocytes 9.4 % (0.0-10.0); Hemoglobin 8.9 g/dL (14.0-18.0); Mean Corpuscular HGB CONC 30.6 g/dL (32.0-36.0); Mean Corpuscular Hemoglobin 22.8 pg (27.0-31.0); Mean Corpuscular Volume 74.7 fL (78.0-98.0); Mean Platelet Volume 9.4 fL (7.4-10.4); Platelet Count 401 thou/uL (130-400); RBC Distribution Width 25.1 % (11.5-14.5); Red Blood Cell (RBC) Count 3.89 mill/uL (4.70-6.10); White Blood Cell (WBC) Count 14.1 thou/uL (4.8-10.8)
[2022-04-10 07:00] VITALS: BP 133/80; TEMP 98.3
[2022-04-10] MEDS: Amlodipine 10 MG TAB PO SCH (08:30)
[2022-04-10] MEDS: Famotidine 20 MG TAB PO SCH (08:30)
[2022-04-10] MEDS: Carvedilol 25 MG TAB PO SCH ×2 (08:30→17:17)
== END 2022-04-10 18:28 | disposition home or self-care (01) | DRG 329 ==
LOC: 2NO 22:59 → SURG A 04-01 12:58 → 2NO 04-01 21:35 → MSONC 04-03 21:31
PROVIDERS: ADMIT Internal Medicine; ATTEND Internal Medicine
PROC: 0JH60WZ Insertion of Totally Implantable Vascular Access Device into Chest Subcutaneous Tissue and Fascia, Open Approach (ICD-10-PCS; 2022-03-27)
PROC: 02HV33Z Insertion of Infusion Device into Superior Vena Cava, Percutaneous Approach (ICD-10-PCS; 2022-03-27)
PROC: B5181ZA Fluoroscopy of Superior Vena Cava using Low Osmolar Contrast, Guidance (ICD-10-PCS; 2022-03-27)
PROC: 0JB70ZZ Excision of Back Subcutaneous Tissue and Fascia, Open Approach (ICD-10-PCS; 2022-03-27)
PROC: 0DTG0ZZ Resection of Left Large Intestine, Open Approach (ICD-10-PCS; principal; 2022-03-28)
PROC: 3E0T3BZ Introduction of Anesthetic Agent into Peripheral Nerves and Plexi, Percutaneous Approach (ICD-10-PCS; 2022-03-28)
PROC: 30233N1 Transfusion of Nonautologous Red Blood Cells into Peripheral Vein, Percutaneous Approach (ICD-10-PCS; 2022-03-28)
PROC: 0DQE0ZZ Repair Large Intestine, Open Approach (ICD-10-PCS; 2022-04-01)
DX: C18.5 Malignant neoplasm of splenic flexure (principal); L89.153 Pressure ulcer of sacral region, stage 3; C18.6 Malignant neoplasm of descending colon; C77.2 Secondary and unspecified malignant neoplasm of intra-abdominal lymph nodes; Z68.41 Body mass index [BMI] 40.0-44.9, adult; K91.89 Other postprocedural complications and disorders of digestive system; E87.2 Acidosis; N17.9 Acute kidney failure, unspecified; I42.8 Other cardiomyopathies; I50.42 Chronic combined systolic (congestive) and diastolic (congestive) heart failure; Z20.822 Contact with and (suspected) exposure to COVID-19; E66.01 Morbid (severe) obesity due to excess calories; E78.5 Hyperlipidemia, unspecified; I11.0 Hypertensive heart disease with heart failure; K29.60 Other gastritis without bleeding; K52.9 Noninfective gastroenteritis and colitis, unspecified; L89.329 Pressure ulcer of left buttock, unspecified stage; Y83.6 Removal of other organ (partial) (total) as the cause of abnormal reaction of the patient, or of later complication, without mention of misadventure at the time of the procedure; E86.9 Volume depletion, unspecified; T44.7X5A Adverse effect of beta-adrenoreceptor antagonists, initial encounter; D50.0 Iron deficiency anemia secondary to blood loss (chronic); Z79.899 Other long term (current) drug therapy; Z82.49 Family history of ischemic heart disease and other diseases of the circulatory system
CPT/HCPCS: 36415; 36416; 36430; 71045; 71260; 74018; 74283; 80048; 80053; 80076; 81001; 81479; 82040; 82378; 82570; 82728; 83540; 83550; 83735; 84100; 84156; 84300; 85025; 86850; 86900; 86901; 87040; 87070; 87086; 87205; 88309; 88361; 88377; 93306; 94760; 97139; A4649; C1788; J0171; J0360; J0694; J1100; J1642; J1650; J1885; J1940; J2250; J2270; J2370; J2405; J2543; J2704; J2916; J3475; J3480; J3490; J7050; J7070; J7120; P9016; P9045; P9047; Q9963; S0020; S0028; U0002

== ENCOUNTER 2024-05-23 05:57 | Emergency (ER) | payer OTHER ==
[2024-05-23] MEDS ORDERED: Ketorolac Tromethamine 30 MG (1 mL) VIAL ONE (06:47)
== END 2024-05-23 07:41 | disposition home or self-care (01) ==
LOC: ERS 05:57
DX: M10.9 Gout, unspecified (principal); E11.9 Type 2 diabetes mellitus without complications; I10 Essential (primary) hypertension; I25.10 Atherosclerotic heart disease of native coronary artery without angina pectoris; E78.5 Hyperlipidemia, unspecified; Z79.899 Other long term (current) drug therapy
CPT/HCPCS: 96372; 99283; J1885